=== PATIENT | male | born 1950 | race Caucasian/White ===

== ENCOUNTER → 2021-04-15 | Outpatient (CLI) | payer OTHER ==
[~2021-04-15] MED LIST: AMLODIPINE; ATORVASTATIN; CLONIDINE; DICL75ER PO; GLYBURIDE/METFORMIN; LOSARTAN; METPRE4DP PO; Percocet 5-3251 EACH PO
[2021-04-15 14:17] LABS: Alanine Aminotransfer (ALT/SGP 37 U/L (12-78); Albumin, Blood 4.3 g/dL (3.4-5.0); Albumin/Globulin Ratio 1.2 (0.8-1.8); Alk Phos 90 U/L (50-136); Anion Gap 6 mmol/L (6-16); Aspartate Aminotrans (AST/SGOT 20 U/L (12-37); Bilirubin, Total 0.9 mg/dL (0.1-1.0); Blood Urea Nitrogen 12 mg/dL (8-24); Bun/Creatinine Ratio 12.7 (12.0-20.0); CO2, Blood 28 mmol/L (21-32); Calcium, Blood 9.5 mg/dL (8.5-10.1); Chloride, Blood 101 mmol/L (98-108); Creatinine, Blood 0.95 mg/dL (0.60-1.20); Globulin, Blood 3.6 g/dL (2.2-4.0); Glomerular Filtration Rate >60 (60-); Glucose, Blood 252 mg/dL (70-99); Potassium, Blood 4.3 mmol/L (3.5-5.5); Sodium, Blood 135 mmol/L (136-145); Total Protein, Blood 7.9 g/dL (6.4-8.2)
== END | disposition home or self-care (01) ==
LOC: LAB SHORT 10:40
PROVIDERS: Family Medicine
DX: E11.9 Type 2 diabetes mellitus without complications (principal)
CPT/HCPCS: 80053; 83036

== ENCOUNTER → 2021-10-13 | Outpatient (CLI) | payer OTHER ==
[2021-10-13 13:40] LABS: Hematocrit 44.7 % (37.0-53.0); Hemoglobin 15.8 g/dL (13.5-17.5); Mean Corpuscular HGB 30.3 pg (26.0-34.0); Mean Corpuscular HGB Conc 35.3 g/dL (31.5-36.5); Mean Corpuscular Volume 86 fL (80-100); Mean Platelet Volume 9.4 fL (9.1-12.4); Platelet Count 273 K/mm3 (150-400); RDW Coefficient Variation 12.3 % (11.7-14.2); RDW Standard Deviation 38.5 fL (35.1-46.3); Red Blood Cell Count 5.21 M/mm3 (4.30-5.90); White Blood Cell Count 8.97 K/mm3 (4.00-11.30)
[2021-10-13 14:55] LABS: Alanine Aminotransfer (ALT/SGP 33 U/L (12-78); Albumin, Blood 4.6 g/dL (3.4-5.0); Albumin/Globulin Ratio 1.2 (0.8-1.8); Alk Phos 122 U/L (50-136); Anion Gap 7 mmol/L (6-16); Aspartate Aminotrans (AST/SGOT 19 U/L (12-37); Blood Urea Nitrogen 19 mg/dL (8-24); Bun/Creatinine Ratio 19.2 (12.0-20.0); CO2, Blood 27 mmol/L (21-32); Calcium, Blood 9.5 mg/dL (8.5-10.1); Chloride, Blood 99 mmol/L (98-108); Creatinine, Blood 0.99 mg/dL (0.60-1.20); Globulin, Blood 3.8 g/dL (2.2-4.0); Glomerular Filtration Rate >60 (60-); Glucose, Blood 354 mg/dL (70-99); Potassium, Blood 4.3 mmol/L (3.5-5.5); Sodium, Blood 133 mmol/L (136-145); Total Protein, Blood 8.4 g/dL (6.4-8.2)
== END | disposition home or self-care (01) ==
LOC: LAB 10:30 → LAB SHORT 10:30
PROVIDERS: Family Medicine
DX: I11.0 Hypertensive heart disease with heart failure (principal); I50.9 Heart failure, unspecified; E11.9 Type 2 diabetes mellitus without complications
CPT/HCPCS: 80053; 83036; 83880; 85027

== ENCOUNTER → 2022-01-13 | Outpatient (CLI) | payer OTHER ==
[2022-01-13 12:10] LABS: BASOPHILS ABSOLUTE AUTO 0.04 K/mm3 (0.00-0.23); BASOPHILS PERCENT AUTO 0 % (0-2); EOSINOPHILS ABSOLUTE AUTO 0.33 K/mm3 (0.00-0.68); EOSINOPHILS PERCENT AUTO 4 % (0-6); Hematocrit 42.3 % (37.0-53.0); Hemoglobin 14.4 g/dL (13.5-17.5); IMMATURE GRAN ABSOLUTE AUTO 0.02 K/mm3 (0.00-0.10); IMMATURE GRAN PERCENT AUTO 0 % (0-1); LYMPHOCYTES ABSOLUTE AUTO 1.93 K/mm3 (0.84-5.20); LYMPHOCYTES PERCENT AUTO 22 % (21-46); MONOCYTES ABSOLUTE AUTO 0.65 K/mm3 (0.16-1.47); MONOCYTES PERCENT AUTO 7 % (4-13); Mean Corpuscular HGB 30.2 pg (26.0-34.0); Mean Corpuscular Volume 89 fL (80-100); Mean Platelet Volume 9.4 fL (9.1-12.4); NEUTROPHILS ABSOLUTE AUTO 6.02 K/mm3 (1.96-9.15); NEUTROPHILS PERCENT AUTO 67 % (41-73); Platelet Count 270 K/mm3 (150-400); RDW Coefficient Variation 11.9 % (11.7-14.2); RDW Standard Deviation 38.7 fL (35.1-46.3); Red Blood Cell Count 4.77 M/mm3 (4.30-5.90); White Blood Cell Count 8.99 K/mm3 (4.00-11.30)
[2022-01-13 12:54] LABS: Alanine Aminotransfer (ALT/SGP 33 U/L (12-78); Albumin, Blood 4.4 g/dL (3.4-5.0); Albumin/Globulin Ratio 1.2 (0.8-1.8); Alk Phos 90 U/L (50-136); Anion Gap 11 mmol/L (6-16); Aspartate Aminotrans (AST/SGOT 24 U/L (12-37); Bilirubin, Total 0.7 mg/dL (0.1-1.0); Blood Urea Nitrogen 14 mg/dL (8-24); Bun/Creatinine Ratio 17.1 (12.0-20.0); CHOL/HDL RATIO 2.9; CO2, Blood 27 mmol/L (21-32); Calcium, Blood 9.9 mg/dL (8.5-10.1); Chloride, Blood 100 mmol/L (98-108); Cholesterol 123 mg/dL (50-200); Creatinine, Blood 0.82 mg/dL (0.60-1.20); Digoxin (Lanoxin) 1.17 ug/mL (0.80-2.00); Globulin, Blood 3.7 g/dL (2.2-4.0); Glomerular Filtration Rate 93 (60-); Glucose, Blood 234 mg/dL (70-99); HDL Cholesterol 42 mg/dL (>39); LDL/HDL RATIO 1.5; Low Density Lipoprotein Chol 63 mg/dL (0-110); Sodium, Blood 138 mmol/L (136-145); Total Protein, Blood 8.1 g/dL (6.4-8.2); Triglycerides 90 mg/dL (30-160); Very Low Density Lipoprot Chol 18 mg/dL (6-32)
== END | disposition home or self-care (01) ==
LOC: LAB 10:48 → LAB SHORT 10:48
PROVIDERS: Family Medicine
DX: Z12.5 Encounter for screening for malignant neoplasm of prostate (principal); I11.0 Hypertensive heart disease with heart failure; E11.9 Type 2 diabetes mellitus without complications; I50.9 Heart failure, unspecified; E78.2 Mixed hyperlipidemia
CPT/HCPCS: 80053; 80061; 80162; 83036; 83880; 85025; G0103

== ENCOUNTER 2022-04-02 08:26 | Inpatient (IN) | payer OTHER ==
[~2022-04-02] VITALS: Ht 177.8 cm; Wt 87.9 kg
[2022-04-02 09:09] LABS: Base Excess Venous -9.8 mmol/L; Bicarbonate Venous 15.9 mmol/L (24.0-30.0); PCO2 Venous 56.2 mmHg (38-42); pH Blood Venous 7.14 (7.34-7.37)
[2022-04-02 09:20] LABS: BASOPHILS ABSOLUTE AUTO 0.06 K/mm3 (0.00-0.23); BASOPHILS PERCENT AUTO 1 % (0-2); EOSINOPHILS ABSOLUTE AUTO 0.56 K/mm3 (0.00-0.68); EOSINOPHILS PERCENT AUTO 5 % (0-6); Hematocrit 45.6 % (37.0-53.0); Hemoglobin 15.4 g/dL (13.5-17.5); IMMATURE GRAN ABSOLUTE AUTO 0.05 K/mm3 (0.00-0.10); IMMATURE GRAN PERCENT AUTO 0 % (0-1); LYMPHOCYTES ABSOLUTE AUTO 3.03 K/mm3 (0.84-5.20); LYMPHOCYTES PERCENT AUTO 27 % (21-46); MONOCYTES ABSOLUTE AUTO 0.54 K/mm3 (0.16-1.47); MONOCYTES PERCENT AUTO 5 % (4-13); Mean Corpuscular HGB 30.3 pg (26.0-34.0); Mean Corpuscular HGB Conc 33.8 g/dL (31.5-36.5); Mean Corpuscular Volume 90 fL (80-100); Mean Platelet Volume 9.5 fL (9.1-12.4); NEUTROPHILS ABSOLUTE AUTO 6.97 K/mm3 (1.96-9.15); NEUTROPHILS PERCENT AUTO 62 % (41-73); Platelet Count 323 K/mm3 (150-400); RDW Coefficient Variation 13.2 % (11.7-14.2); Red Blood Cell Count 5.08 M/mm3 (4.30-5.90); White Blood Cell Count 11.21 K/mm3 (4.00-11.30)
[2022-04-02 09:40] LABS: Albumin, Blood 3.4 g/dL (3.4-5.0); Albumin/Globulin Ratio 0.8 (0.8-1.8); Bilirubin, Total 0.4 mg/dL (0.1-1.0); Bun/Creatinine Ratio 12.4 (12.0-20.0); Calcium, Blood 8.5 mg/dL (8.5-10.1); Creatinine, Blood 1.05 mg/dL (0.60-1.20); Globulin, Blood 4.1 g/dL (2.2-4.0); Potassium, Blood 4.1 mmol/L (3.5-5.5); Total Protein, Blood 7.5 g/dL (6.4-8.2)
[2022-04-02 10:13] LABS: Influenza A, PCR NEGATIVE (NEGATIVE); Influenza B, PCR NEGATIVE (NEGATIVE); Resp Syncytial Virus, PCR NEGATIVE (NEGATIVE)
[2022-04-02 10:18] LABS: SARS-Cov-2 (COVID-19) PCR, MMC POSITIVE (NEGATIVE)
--- NOTE | 2022-04-02 12:18 | NUR ---
PROVIDER: DR ROBLES AT BEDSIDE FOR ADMISSION ASSESSMENT
[2022-04-02 15:54] LABS: PCO2 Arterial 32.7 mmHg (35-45); PO2 Arterial 79.2 mmHg (80-100); pH Blood Arterial 7.36 (7.35-7.45)
--- NOTE | 2022-04-02 17:38 | NUR ---
PHARMACY: [facility] called for updated med list for med rec
--- NOTE | 2022-04-02 18:50 | NUR ---
SHIFT SUMMARY: pt admitted to ICU from ED this afternoon NEURO: propofol currently at 30. pt has received 6mg of versed for sedation as well. pt will open eyes to voice. he moves all extremities and purposfully reaches for ET tube. CARDIAC: pt on norepi for a short period of time for hypotension. Afib/aflutter on monitor. Norepi was changed to epi after several episodes of bradycardia and pauses. Lowest witnessed HR 37 bpm. Epi currently at 0.5mcg and pt tolerating well with no bradycardia. RESPIRATORY: 8.0 EET 25cm at lip. Pt initially arrived on 100% FiO2 PEEP of 8. Since titrated down to AC/VC 16/450/5/40% GI/: og tube to low-intermittant suction. Temp prob ram draining clear yellow urine. SKIN: skin intact. PSYCH/SOCIAL: pt's at bedside.
--- NOTE | 2022-04-02 20:00 | NUR ---
ASSUMED CARE OF PT AT 1915. REPORT RECEIVED. PT PRESENTS IN BED. INTUBATED. PT'S AT BEDSIDE. PT MILDLY RESISTANT TO ORAL CARE. EPINEPHERINE AT 0.5 NEEDING TO INCREASED TO 1 MCG SECONDARY TO SOFT BLOOD PRESSURES. WILL TITRATE DOWN IF ABLE. PT'S IS TO STAY IN AN RV IN THE PARKING LOT HERE AT THE HOSPITAL. WILL REIVEW CHART AND PLAN OF CARE FOR THIS PT.
--- NOTE | 2022-04-02 20:00 | NUR ---
ASSUMED CARE OF PT AT 1900. REPORT RECEIVED AT BEDSIDE. PT PRESENTS IN BED. INITIALLY ASLEEP. EASILY AWAKENS TO GREETING AND CARE. HAS BEEN INCONTINENT TO STOOL. SOME LOOSE WITH UNDIGESTED FOOD PARTICLES NOTED. PT VERY COOPERATIVE WITH CLEAN UP AND WITH ANTONIO PAD CHANGE. DISCUSSED PLAN FOR Q 2 AND PRN TURNS. TO CALL RN IF SHE HAS HAD STOOL. PT VERBALIZES UNDERSTANDING. WILL REVIEW CHART AND PLAN OF CARE FOR THIS PT.
--- NOTE | 2022-04-02 23:29 | NUR ---
SPOKE WITH DR ROBLES IN REFERENCE TO CONTINUING EPINEPHERINE VERSUS CHANGING TO LEVOPHED FOR BLOOD PRESSURE SUPPORT. WILL CONTINUE EPINEPHERINE THROUGH THE NIGHT FOR NOW. UPDATE OF ECCHOCARDIOGRAM GIVEN TO DR ROBLES.
[2022-04-02 23:49] LABS: Source, Urine Foley catheter
[2022-04-02 23:51] LABS: Bilirubin, Urine Neg (Neg); Blood, Urine 2+ (Neg); Glucose Qualitative, Urine Neg (Neg); Ketones, Urine 1+ (Neg); Leukocyte Esterase, Urine 1+ (Neg); Nitrite, Urine Neg (Neg); Protein, Urine 2+ (Neg); Specific Gravity, Urine 1.015 (1.003-1.022); Urobilinogen, Urine NORM (Normal)
--- NOTE | 2022-04-03 | NUR ---
HAVE TURNED PT Q 2 HOURS TO PROTECT SKIN INTEGRITY. PT AWAKENS EASILY AT TIMES AND BECOMES ANXIOUS. HAVE TITRATED PROPOFOL UPWARDS TO 45 MCG'S/KG/MIN. THIS HAS HELPED PT TO BE ABLE TO TOLERATE VENT BETTER. HAVE MEDICATED PT ONCE WITH 50 MCG'S FENTANYL ADJUNCT TO PROPOFOL FOR VENT TOLERANCE. YELLOW SECRETIONS SUCTIONED PER ETT. HAVE TITRATED FIO2 DOWN TO 30 PERCENT. WILL CONTINUE TO MONITOR.
[2022-04-03 00:30] LABS: Appearance, Urine Hazy (Clear); Color, Urine Yellow (P-Yellow)
[2022-04-03 00:31] LABS: Amorphous Light (0-Heavy); Bacteria Few /hpf; Mucus Light (0-Heavy); Red Blood Cells, Urine 0-2 /hpf (0-2); Squamous Epithelial Cells Not Seen /hpf (Few)
[2022-04-03 04:41] LABS: Hemoglobin 12.4 g/dL (13.5-17.5); Mean Corpuscular HGB 30.8 pg (26.0-34.0); Mean Corpuscular HGB Conc 34.4 g/dL (31.5-36.5); Mean Corpuscular Volume 90 fL (80-100); Mean Platelet Volume 9.6 fL (9.1-12.4); Platelet Count 316 K/mm3 (150-400); RDW Coefficient Variation 13.7 % (11.7-14.2); RDW Standard Deviation 44.8 fL (35.1-46.3); Red Blood Cell Count 4.02 M/mm3 (4.30-5.90); White Blood Cell Count 18.93 K/mm3 (4.00-11.30)
[2022-04-03 05:03] LABS: Albumin, Blood 2.8 g/dL (3.4-5.0); Albumin/Globulin Ratio 0.8 (0.8-1.8); Bilirubin, Total 0.5 mg/dL (0.1-1.0); Bun/Creatinine Ratio 15.1 (12.0-20.0); Calcium, Blood 8.6 mg/dL (8.5-10.1); Creatinine, Blood 1.85 mg/dL (0.60-1.20); Globulin, Blood 3.3 g/dL (2.2-4.0); Magnesium, Blood 1.8 mg/dL (1.6-2.4); Potassium, Blood 4.3 mmol/L (3.5-5.5); Total Protein, Blood 6.1 g/dL (6.4-8.2)
--- NOTE | 2022-04-03 06:47 | NUR ---
PT HAS BEEN NEEDING TO HAVE TITRATE EPINEPHERINE DRIP UP TO 5 MCG'S/MIN. CONTINUES IN ATRIAL FIB. PT ON 45 MCG'S PROPOFOL TO ENABLE VENT TOLERANCE. POOR URINE OUTPUT. <30 ML/HOUR. WITH INCREASE IN EPINEPHERINE WHICH IS IN D5W BLOOD GLUCOSE LEVELS HAVE BEEN INCREASING. WILL PASS THIS INFORMATION TO ONCOMING RN. WILL CONTINUE TO MONITOR PT, AND WILL REPORT OFF TO ONCOMIG RN.
--- NOTE | 2022-04-03 10:46 | NUR ---
ASSUMED CARE OF PT AT 0700 PT INTUBATED AND SEDATED. PROP RUNNING AT 45 MCG/KG/MIN. EPI RUNNING AT 5 MCG. TKO RUNNING WELL. PT IS SLIGHTLY HYPERTENSIVE AT THIS TIME RANGING HR IN UPPER 90'S TO 100'S. TEMP BARILLAS CATH DRAINING TO GRAVITY. SEE FULL ASSESSMENT FOR MORE INFORMATION.
--- NOTE | 2022-04-03 17:45 | NUR ---
END OF SHIFT SUMMARY PT SEDATED AND INTUBATED. PT DOES NOT OBEY COMMANDS OR NOD TO ANSWER. SPOUSE IN AND OUT OF ROOM COUPLE TIMES TODAY. BP AND HR STABLE, LEVO ON STANDBY. PROP RUNNING AT 45MCG. TKO @ 10MLS/HR. VENT SETTINGS 16/450/5/30%. LUNG SOUNDS CLEAR IN UPPER LOBES AND DIMINISHED TO NONE IN LOWER. PEDAL PULSES FOUND WITH DOPPLER ONLY. VITALS STABLE AT THIS TIME. 300 MLS URINE AND NO BM THIS SHIFT. VITAL HP RUNNING AT 35 MLS/HR WITH INTENDED GOAL OF 50 MLS/HR. WILL CONTINUE TO MONITOR UNTIL NEXT SHIFT IN.
--- NOTE | 2022-04-03 19:15 | NUR ---
ASSUMPTION OF CARE PT REMAINS INTUBATED WITH VENT SETTINGS AC/VC 16/450/5/30%. HE IS RECEIVING PROPOFOL 45MCG/KG/MIN. OGT RESIDUALS 40ML, TF INCREASED TO GOAL RATE. FACIAL GRIMACING WITH NOXIOUS STIMULI, PT WITHDRAWS EXTREMITIES WITH PAINFUL STIMULI. BARILLAS PATENT AND DRAINING YELLOW/CLOUDY URINE TO GRAVITY. CENTRAL LINE TO R SUBCLAV, PERIPHERAL IVS TO RAC AND LAC. AFIB ON MONITOR WITH RATE IN 80S, BP STABLE. SEE SHIFT ASSESSMENT.
[2022-04-04 04:03] LABS: BASOPHILS ABSOLUTE AUTO 0.01 K/mm3 (0.00-0.23); BASOPHILS PERCENT AUTO 0 % (0-2); EOSINOPHILS ABSOLUTE AUTO 0.01 K/mm3 (0.00-0.68); EOSINOPHILS PERCENT AUTO 0 % (0-6); Hemoglobin 12.9 g/dL (13.5-17.5); IMMATURE GRAN ABSOLUTE AUTO 0.09 K/mm3 (0.00-0.10); IMMATURE GRAN PERCENT AUTO 1 % (0-1); LYMPHOCYTES ABSOLUTE AUTO 1.53 K/mm3 (0.84-5.20); LYMPHOCYTES PERCENT AUTO 10 % (21-46); MONOCYTES ABSOLUTE AUTO 0.85 K/mm3 (0.16-1.47); MONOCYTES PERCENT AUTO 6 % (4-13); Mean Corpuscular HGB 30.6 pg (26.0-34.0); Mean Corpuscular HGB Conc 34.9 g/dL (31.5-36.5); Mean Corpuscular Volume 88 fL (80-100); Mean Platelet Volume 9.6 fL (9.1-12.4); NEUTROPHILS ABSOLUTE AUTO 12.16 K/mm3 (1.96-9.15); NEUTROPHILS PERCENT AUTO 83 % (41-73); Platelet Count 243 K/mm3 (150-400); RDW Coefficient Variation 13.6 % (11.7-14.2); RDW Standard Deviation 43.9 fL (35.1-46.3); Red Blood Cell Count 4.22 M/mm3 (4.30-5.90); White Blood Cell Count 14.65 K/mm3 (4.00-11.30)
[2022-04-04 04:19] LABS: Bun/Creatinine Ratio 30.3 (12.0-20.0); Creatinine, Blood 1.55 mg/dL (0.60-1.20); Phosphorus, Blood 4.7 mg/dL (2.5-4.9); Potassium, Blood 3.8 mmol/L (3.5-5.5)
--- NOTE | 2022-04-04 06:01 | NUR ---
SHIFT SUMMARY PT REMAINS INTUBATED WITH VENT SETTINGS AC/VC 16/450/5/30%. HE IS RECEIVING PROPOFOL 45MCG/KG/MIN. HE GRIMACES AND WEAKLY MOVES EXTREMITIES TO NOXIOUS STIMULI. LARGE AMOUNT OF ORAL SECRETIONS AND ETT SECRETIONS. TUBE FEEDING INFUSING AT GOAL RATE WITH MINIMAL RESIDUALS, BOWEL TONES ACTIVE. BARILLAS PATENT AND DRAINING YELLOW/CLOUDY URINE WITH SHIFT OUTPUT 700ML. HE REMAINS IN AFIB WITH RATE 70S-80S, BP STABLE THROUGHOUT SHIFT. NO ACUTE CHANGES THIS SHIFT. WILL REPORT TO ONCOMING RN.
--- NOTE | 2022-04-04 07:11 | NUR ---
ASSUMED CARE OF PT AT 0700 PT SEDATED AND INTUBATED. NO VISITORS AT THIS TIME. VITAL HP RUNNING AT 50 MLS/HR. VENT AT 16/450/5/30%. PROP AT 45 MCG,NO PRESSORS AT THIS TIME. SEE ASSESSMENT FOR FURTHER INFO.
--- NOTE | 2022-04-04 10:04 | NUR ---
PROP AND TF ON STANDBY AT THIS TIME.
--- NOTE | 2022-04-04 10:31 | NUR ---
SEDATION VACATION PT TACHICARDIC WITH SYTOLIC IN HIGH 100'S, HR ABOVE 100'S. PT VERY AGITATED PULLING ON RESTRAINTS AND NOT TOLERATING BEING OFF SEDATION. PT FOLLOWING COMMANDS WITH OPENING EYES AND SQUEEZING HANDS. PROPOFOL RESTARTED AT 45 MCG/KG/MIN.
--- NOTE | 2022-04-04 18:17 | NUR ---
END OF SHIFT SUMMARY PT INTUBATED AND SEDATED. PT DOES NOT FOLLOW COMMANDS BUT DOES PULL BACK WITH PAINFUL STIMULI. VITALS WNL. LSCBT WITH DIMINISHED BASES. PROP RUNNING AT 45 MCG. VITAL HP RUNNING AT GOAL RATE OF 50 MLS/HR. TKO AT 10 MLS/HR. VENT AT 16/450/5/30%. PT FAILED SEDATION VACATION THIS AM, PLAN IS TO TRY AGAIN IN THE MORNING TOMMOROW. PT IN ROOM AT THIS TIME. WILL CONTINUE TO MONITOR UNTIL HAND OFF TO RESEARCH AND DEVELOPMENT MANAGER.
--- NOTE | 2022-04-04 19:15 | NUR ---
ASSUMPTION OF CARE PT REMAINS INTUBATED WITH VENT SETTINGS AC/VC 16/450/5/30%. HE IS RECEIVING PROPOFOL 45MCG/KG/MIN AND NS TKO. TUBE FEEDING INFUSING AT GOAL RATE, RESIDUALS 120ML. BOWEL TONES ACTIVE. BARILLAS PATENT AND DRAINING CLEAR/YELLOW URINE TO GRAVITY. VSS AT THIS TIME. SEE SHIFT ASSESSMENT.
--- NOTE | 2022-04-04 21:23 | NUR ---
UPDATE PT CONTINUES TO HAVE BACK PAIN DESPITE REPOSITIONING AND MEDICATION. PT ASKS "TO GO TO HIS ROOM" AND HE STS "I WANT TO SLEEP IN MY BED". HE FREQUENTLY PUTS LEGS OVER THE EDGE OF THE BED AND STS "I'M GETTING UP". DIFFICULTY REORIENTING PT TO UNIT AND ROOM. HE REMAINS HYPERTENSIVE WITH SBP >180. DR BETH CONSULTED. PLAN TO RESTART PRECEDEX. BED IN LOW POSITION, BED ALARM ON, CALL LIGHT WITHIN REACH.
[2022-04-05 05:05] LABS: BASOPHILS ABSOLUTE AUTO 0.01 K/mm3 (0.00-0.23); BASOPHILS PERCENT AUTO 0 % (0-2); EOSINOPHILS PERCENT AUTO 0 % (0-6); Hematocrit 36.9 % (37.0-53.0); Hemoglobin 12.6 g/dL (13.5-17.5); IMMATURE GRAN ABSOLUTE AUTO 0.09 K/mm3 (0.00-0.10); IMMATURE GRAN PERCENT AUTO 1 % (0-1); LYMPHOCYTES ABSOLUTE AUTO 1.42 K/mm3 (0.84-5.20); LYMPHOCYTES PERCENT AUTO 10 % (21-46); MONOCYTES ABSOLUTE AUTO 0.97 K/mm3 (0.16-1.47); MONOCYTES PERCENT AUTO 7 % (4-13); Mean Corpuscular HGB 30.3 pg (26.0-34.0); Mean Corpuscular HGB Conc 34.1 g/dL (31.5-36.5); Mean Corpuscular Volume 89 fL (80-100); Mean Platelet Volume 9.8 fL (9.1-12.4); NEUTROPHILS ABSOLUTE AUTO 11.12 K/mm3 (1.96-9.15); NEUTROPHILS PERCENT AUTO 82 % (41-73); Platelet Count 225 K/mm3 (150-400); RDW Coefficient Variation 13.5 % (11.7-14.2); RDW Standard Deviation 44.4 fL (35.1-46.3); Red Blood Cell Count 4.16 M/mm3 (4.30-5.90); White Blood Cell Count 13.61 K/mm3 (4.00-11.30)
[2022-04-05 05:31] LABS: Bun/Creatinine Ratio 41.7 (12.0-20.0); Calcium, Blood 8.9 mg/dL (8.5-10.1); Creatinine, Blood 1.27 mg/dL (0.60-1.20); Potassium, Blood 3.6 mmol/L (3.5-5.5)
--- NOTE | 2022-04-05 05:43 | NUR ---
SHIFT SUMMARY PT REMAINS INTUBATED WITH VENT SETTINGS AC/VC 16/450/5/30%. HE IS RECEIVING PROPOFOL 35MCG/KG/MIN AND PRECEDEX 0.2MCG/KG/HR. PLAN TO TITRATE PROPOFOL DOWN. PT GRIMACES AND OPENS EYES WITH NOXIOUS STIMULI. COUGH/GAG INTACT. HE DOES NOT FOLLOW COMMANDS BUT EXTREMITIES WITHDRAW FROM PAINFUL STIMULI. LUNG SOUNDS CLEAR THROUGHOUT. MODERATE AMOUNT OF THIN ORAL SECRETIONS. TUBE FEEDING INFUSING VIA OGT. BOWEL TONES ACTIVE, ABDOMEN SOFT, NO GRIMACING WITH PALPATION. BARILLAS PATENT AND DRAINING CLEAR YELLOW URINE TO GRAVITY WITH SHIFT OUTPUT OF 850ML. HE REMAINS IN AFIB WITH RATE 70S-80S. BP STABLE WITH MAP >65. WILL REPORT TO ONCOMING RN.
--- NOTE | 2022-04-05 09:22 | NUR ---
TOOK OVER CARE OF PT AT 714, PT WAS VENTILATED ON AC/VC 16/450/5/30% AT THAT TIME. PRECEDEX WAS ON 0.2, PROPOFOL ON 922 RESPIRATORY THERAPIST ADJUSTING PT TO A PRESSURE SUPPORT OF 5/5 30%. PROPOFOL HAS BEEN OFF SINCE 858. PRECEDEX CURRENTLY ON 0.4.
--- NOTE | 2022-04-05 16:52 | NUR ---
SUMMARY NEURO: PT A/OX3, REORIENTED ON DATE. FOLLOWING COMMANDS WITH EQUAL STRENGTH IN ALL EXTREMETIES. PT IS LETHARGIC AND HAS GENERALIZED WEAKNESS. PT IS ALSO IMPULSIVE AT TIMES BUT HAS BEEN REDIRECTABLE SO FAR. CARDIAC: PT IS IN AFIB WITH A BBB. SYSTOLIC BP'S HAVE BEEN AROUND 130 SINCE EXTUBATION. BLE TRACE-+1 EDEMA. 40 OF LASIX GIVEN WITH 2200ML OF URINE OUTPUT FOLLOWING. LUNGS: PT EXTUBATED AROUND 1330. PT THEN PLACED ON 3L NC BUT IS CURRENTLY ON RA SATTING 97%. LUNG SOUNDS ARE CLEAR. GI: TF WAS STOPPED AT 1200. PT NPO AT THIS TIME. SOFT DISTENDED ABDOMEN WITH ACTIVE BOWELS SOUNDS. : BARILLAS IN PLACE WITH CLEAR YELLOW URINE. LASIX GIVEN TODAY.
--- NOTE | 2022-04-05 19:30 | NUR ---
ASSUMPTION OF CARE PT A&OX4. VERY PLEASANT AFFECT, PARTICIPATES IN CONVERSATION AND CARE. AFIB ON MONITOR WITH RATE IN 80S-90S, SBP 150S. PT DENIES PAIN, DISCOMFORT, CHEST PAIN AND SOB. ONLY COMPLAINT IS GENERALIZED WEAKNESS, ENCOURAGED ROM. PT FOLLOWS COMMANDS, HAS EQUAL UPPER AND LOWER EXTREMITY STRENGTH. PT ON RA WITH SPO2 >95%. RR 12-20. BOWEL TONES ACTIVE. BARILLAS PATENT AND DRAINING TO GRAVITY. BED IN LOW POSITION, CALL LIGHT WITHIN REACH. SEE SHIFT ASSESSMENT.
[2022-04-06 04:15] LABS: Hematocrit 44.4 % (37.0-53.0); Hemoglobin 15.2 g/dL (13.5-17.5); Mean Corpuscular HGB Conc 34.2 g/dL (31.5-36.5); Mean Corpuscular Volume 88 fL (80-100); Mean Platelet Volume 9.7 fL (9.1-12.4); Platelet Count 317 K/mm3 (150-400); RDW Coefficient Variation 13.4 % (11.7-14.2); RDW Standard Deviation 42.8 fL (35.1-46.3); Red Blood Cell Count 5.07 M/mm3 (4.30-5.90); White Blood Cell Count 14.57 K/mm3 (4.00-11.30)
[2022-04-06 04:24] LABS: Bun/Creatinine Ratio 37.4 (12.0-20.0); Creatinine, Blood 1.31 mg/dL (0.60-1.20); Potassium, Blood 3.4 mmol/L (3.5-5.5)
--- NOTE | 2022-04-06 06:38 | NUR ---
SHIFT SUMMARY PT IS A&OX4, VERY PLEASANT AND COOPERATIVE. HE HAS BEEN ON RA WITH SPO2 >93%. LUNG SOUNDS CLEAR THROUGHOUT. HE HAS A PRODUCTIVE COUGH WITH SMALL AMOUNT OF YELLOW PHLEGM. HE HAS BEEN DRINKING WATER THROUGHOUT THE NIGHT. HE HAS BEEN UP TO THE BEDSIDE COMMODE SEVERAL TIMES TONIGHT WITH LIQUID STOOL. BARILLAS PATENT AND DRAINING WITH SHIFT OUTPUT OF 2600ML. VSS THROUGHOUT SHIFT. PT EXPRESSES WANTING TO GO HOME TODAY. WILL REPORT TO ONCOMING RN.
--- NOTE | 2022-04-06 08:49 | NUR ---
ASSUMPTION OF CARE RECEIVED REPORT FROM ALISE CAMP AT 0700, ASSUMED CARE OF PATIENT. PATIENT A/O, SLOW TO RESPOND BUT CLEAR, ORIENTED SPEECH. SP02 100% ON ROOM AIR. AFIB WITH RATE 110-120, SBP 150'S. BARILLAS PATENT AND DRAINING CLEAR, YELLOW URINE. TWO PERSON ASSIST WITH WALKER TO COMMODE, PATIENT WITH LEFT SIDE WEAKNESS STATED HIS BASELINE FROM A STROKE HE HAD PREVIOUSLY. PATIENT UP TO CHAIR, CALL LIGHT IN REACH.
--- NOTE | 2022-04-06 12:11 | NUR ---
PHYSICIAN COMMUNICATION SPOKE WITH DR. ESQUIVEL, DISCUSSED PATIENT'S ICU STATUS AND RECEIVED ORDERS TO DOWNGRADE TO MEDICAL WITH TELE STATUS. RECEIVED ORDERS FOR SPEECH THERAPY TO EVALUATE RISK FOR ASPIRATION, SPEECH THERAPY EVALUATED PATIENT WHILE UP IN CHAIR AND ORDERS FOR A DIET WERE RECEIVED. CHANGED INSULIN ORDERS TO AC/HS. NOTIFIED DR. BANERJEE REGARDING STATUS CHANGE, RECEIVED ADDITIONAL ORDERS TO DISCONTINUE BARILLAS CATHETER AND CENTRAL LINE. WILL TREAT PRESCRIBED.
--- NOTE | 2022-04-06 18:35 | NUR ---
TRANSFER REPORT GIVEN TO MARTI CAMP, PATIENT TO TRANSFER TO MEDICAL FLOOR.
--- NOTE | 2022-04-06 22:59 | NUR ---
NOTIFIED PROVIDER CALLED DR GONZALEZ AND NOTIFIED HER OF PT'S LAST TWO HIGH BP READINGS. I SAID PER THEIR LAST PHARMACY PULL HE MAY BE TAKING CATAPRES AND LOSARTAN BUT WE CANNOT VERIFY AT THIS TIME. ORDERED 0.1 MG CATAPRES BID WITH THE FIRST DOSE NOW.
[2022-04-07 05:42] LABS: BASOPHILS ABSOLUTE AUTO 0.01 K/mm3 (0.00-0.23); BASOPHILS PERCENT AUTO 0 % (0-2); EOSINOPHILS ABSOLUTE AUTO 0.14 K/mm3 (0.00-0.68); EOSINOPHILS PERCENT AUTO 1 % (0-6); Hematocrit 40.9 % (37.0-53.0); Hemoglobin 14.1 g/dL (13.5-17.5); IMMATURE GRAN PERCENT AUTO 1 % (0-1); LYMPHOCYTES ABSOLUTE AUTO 3.13 K/mm3 (0.84-5.20); LYMPHOCYTES PERCENT AUTO 28 % (21-46); MONOCYTES ABSOLUTE AUTO 1.07 K/mm3 (0.16-1.47); MONOCYTES PERCENT AUTO 10 % (4-13); Mean Corpuscular HGB 30.1 pg (26.0-34.0); Mean Corpuscular HGB Conc 34.5 g/dL (31.5-36.5); Mean Corpuscular Volume 87 fL (80-100); NEUTROPHILS PERCENT AUTO 60 % (41-73); Platelet Count 267 K/mm3 (150-400); RDW Coefficient Variation 13.1 % (11.7-14.2); RDW Standard Deviation 41.8 fL (35.1-46.3); Red Blood Cell Count 4.69 M/mm3 (4.30-5.90); White Blood Cell Count 11.15 K/mm3 (4.00-11.30)
--- NOTE | 2022-04-07 05:46 | NUR ---
SHIFT SUMMARY PT WAS AOX4 T/O SHIFT, PLEASANT, COOPERATIVE, AND SLIGHTLY FORGETFUL. HE WAS AWARE OF HIS OWN LIMITATIONS AND USED THE CALL LIGHT FOR 2 OF US TO ASSIST TO THE BATHROOM. PT HAD MULTIPLE LOOSE, GASSY STOOLS. PT WAS ABLE TO VOID ON HIS OWN AFTER REPORT FROM DAY SHIFT THAT HE WAS HAVING DIFFICULTY DOING SO. PT CONTINUES IN ATRIAL FIB.
[2022-04-07 06:02] LABS: Magnesium, Blood 2.1 mg/dL (1.6-2.4)
[2022-04-07 06:03] LABS: Anion Gap 7 mmol/L (6-16); Blood Urea Nitrogen 45 mg/dL (8-24); Bun/Creatinine Ratio 37.5 (12.0-20.0); CO2, Blood 26 mmol/L (21-32); Calcium, Blood 8.9 mg/dL (8.5-10.1); Chloride, Blood 104 mmol/L (98-108); Glomerular Filtration Rate 63 (60-); Glucose, Blood 173 mg/dL (70-99); Phosphorus, Blood 3.8 mg/dL (2.5-4.9); Potassium, Blood 3.9 mmol/L (3.5-5.5); Sodium, Blood 137 mmol/L (136-145)
[2022-04-07] MEDS ORDERED: PIOG30 PO (11:47)
[2022-04-07] MEDS ORDERED: FURO40 PO (11:48)
[2022-04-07] MEDS ORDERED: POTA10T PO (11:48)
[2022-04-07] MEDS ORDERED: CATAPRES0.2 M1 PO (11:49)
[2022-04-07] MEDS ORDERED: GLYBURIDE-METF1 EACH PO (11:49)
[2022-04-07] MEDS ORDERED: DIGOX125 MC1 PO (11:50)
[2022-04-07] MEDS ORDERED: LOSARTAN POTAS100 M1 PO (11:50)
[2022-04-07] MEDS ORDERED: METO100ER PO (11:50)
[2022-04-07] MEDS ORDERED: CLOP75 PO (11:51)
[2022-04-07] MEDS ORDERED: ATOR20 PO (11:52)
[2022-04-07] MEDS ORDERED: SILD50TA PO (11:52)
--- NOTE | 2022-04-07 18:42 | NUR ---
SHIFT SUMMARY PATIENT DENIES PAIN, NAUSEA, AND SHORTNESS OF BREATH. PATIENT IS A 1P WITH FWW. PATIENT IS ON ROOM AIR, MAINTAINING SATS ABOVE 95%. PATIENT IS COVID+. PATIENT WORKED WITH PT,OT, AND ST. RECOMMENDED SNF. PATIENT IS EATING AND DRINKING WELL. PATIENT HR WOULD OCCASSIONALLY JUMP TO 160, THEN IMMEDIATELY COME DOWN. PATIENT HAD NO SYMPTOMS. PATIENT PREFERS TO WALK TO BATHROOM. PATIENT IS PLEASANT AND COOPERATIVE WITH CARE.
--- NOTE | 2022-04-08 05:17 | NUR ---
CONTACTED PROVIDER - HTN PT HAD SYSTOLIC IN 180'S TONIGHT AND DYASTOLIC WAS READING OVER 110. CONTACTED DR NOEL AND RELAYED INFO, HE ORDERED PRN IV HYDRALAZINE 10 MG Q6 FOR SYSTOLIC > 170.
--- NOTE | 2022-04-08 06:02 | NUR ---
SHIFT SUMMARY PT COVID+, AOX4, SAT > 95 ON RA. PT IS MOSTLY ASYMPTOMATIC OF COVID EXCEPT FOR FATIGUE. PT IS AFIB AT BASELINE, TACHY AND HYPERTENSIVE. TONIGHT HE WAS RUNNING SYSTOLIC IN THE 180'S AND THEN DYASTOLIC > 110. I CALLED THE HOSPITALIST AND PRN HYDRALAZINE Q6, FIRST DOSE WAS GIVEN THIS MORNING AT 0550. PT HR GOES INTO THE 140'S WHEN HE AMBULATING TO THE BATHROOM, AND TONIGHT HE HAD AN EPISODE OF HR 170 BECAUSE HE WAS DOING EXERCISES IN HIS BED. PT STATED NUMEROUS TIMES THAT HE HOPES HE CAN GO HOME SOON, AND THAT HE'S FEELING BETTER AND STRONGER. HE WANTS TO GO BACK TO HIS HOME AND NOT TO SNF OR REHAB. PT PLEASANT AND COOPERATIVE WITH CARE.
--- NOTE | 2022-04-08 09:39 | NUR ---
UPDATE WHILE ADMINISTERING MORNING MEDICATIONS, PATIENT WAS QUITE AGITATED WITH PHYSICAL THERAPY. PATIENT EXPRESSED TO THIS RN THAT HE WANTED TO GO HOME. I INFORMED HIM THAT THE DOCTOR WOULD NEED TO PUT DISCHARGE ORDERS IN. PATIENT EXPRESSED THAT HE WAS GOING HOME TODAY EITHER WAY. HE SAID "IM GOING TO BREAK OUT OF HERE WHETHER THEY WANT ME TO OR NOT." PATIENT EXPRESSED HE WILL NOT GO TO SNF. THIS RN HAD A LONG CONVERSATION ABOUT RISKS OF FALLING AND NOT HAVING SOMEONE WITH HIM 01/03. PATIENT ADMITMANT ABOUT GOING HOME TODAY. DR. ESQUIVEL NOTIFIED, SHE ALSO TALKED WITH PATIENT.
[2022-04-08 12:17] LABS: BASOPHILS ABSOLUTE AUTO 0.02 K/mm3 (0.00-0.23); BASOPHILS PERCENT AUTO 0 % (0-2); EOSINOPHILS ABSOLUTE AUTO 0.07 K/mm3 (0.00-0.68); EOSINOPHILS PERCENT AUTO 1 % (0-6); Hematocrit 41.5 % (37.0-53.0); Hemoglobin 14.3 g/dL (13.5-17.5); IMMATURE GRAN ABSOLUTE AUTO 0.15 K/mm3 (0.00-0.10); IMMATURE GRAN PERCENT AUTO 1 % (0-1); LYMPHOCYTES ABSOLUTE AUTO 1.57 K/mm3 (0.84-5.20); LYMPHOCYTES PERCENT AUTO 11 % (21-46); MONOCYTES ABSOLUTE AUTO 0.56 K/mm3 (0.16-1.47); MONOCYTES PERCENT AUTO 4 % (4-13); Mean Corpuscular HGB 30.3 pg (26.0-34.0); Mean Corpuscular HGB Conc 34.5 g/dL (31.5-36.5); Mean Corpuscular Volume 88 fL (80-100); Mean Platelet Volume 9.8 fL (9.1-12.4); NEUTROPHILS ABSOLUTE AUTO 12.31 K/mm3 (1.96-9.15); NEUTROPHILS PERCENT AUTO 84 % (41-73); Platelet Count 341 K/mm3 (150-400); RDW Coefficient Variation 12.9 % (11.7-14.2); RDW Standard Deviation 42.2 fL (35.1-46.3); Red Blood Cell Count 4.72 M/mm3 (4.30-5.90); White Blood Cell Count 14.68 K/mm3 (4.00-11.30)
[2022-04-08 12:34] LABS: Magnesium, Blood 2.1 mg/dL (1.6-2.4)
[2022-04-08 12:35] LABS: Calcium, Blood 9.1 mg/dL (8.5-10.1); Creatinine, Blood 1.5 mg/dL (0.60-1.20); Potassium, Blood 4.5 mmol/L (3.5-5.5)
--- NOTE | 2022-04-08 12:50 | NUR ---
TRANSFER/DIRECTOR OF DIAGNOSTIC IMAGING PATIENT CAME OUT STATING PATIENT WAS SLEEPING HARD, WOULDNT WAKE UP. WENT INTO CHECK ON PATIENT. PATIENT SITTING IN CHAIR, UNRESPONSIVE, DIAPHORETIC, DROOLING, PUPILS BLOWN ON BOTH SIDES, CBG 423. 15U OF INSULIN GIVEN. DR CALLED, NO ANSWER, DIRECTOR OF DIAGNOSTIC IMAGING CALLED. TELE REPORTS AFIB AT 85. PATIENT SATS ABOVE 90%. PATIENT VERY COLD. LABS DRAWN. PATIENT CAME BACK AND WAS TALKING. PATIENT MENTATION DIFFERENT. HALLUCINATING, A&O TO 1-2. PATIENT HAD A LARGE BM. VITALS WNL. PATIENT TRANSFERED TO ICU13. BEDSIDE REPORT GIVEN TO ICU RECIEVING NURSE. ATTEMPTED TO CALL X2, NO ANSWER.
--- NOTE | 2022-04-08 13:01 | NUR ---
Spiritual care visit conducted. In responding to a [employer], I connect with pt's spouse, Sandra. She heard to overhead page and came trembling toward pt's rm from the elevator. She is unstable on her feet as Senior Rd Engineer Marry and I get her to a chair and help explain what is happening with Mr. Peterson. RN Communications Professional Parris Nye comes and explains the Medical aspect and offers more compassion. I sit with Sandra and provide a calming presence and take short trips back to pt's rm so I can continue to keep Sandra apprised of the situation. Sandra, once she hears some positive news, she states that she needs to get some food because she feels faint. I walk with her down to the 1st floor and share that her will be in ICU-13 and it may take a bit to get him settled and that this is a good time to go t the cafeteria. Sandra responds well, voices appreciation for the care and shows signs of stabilization. I will continue to remain available to pt and family.
--- NOTE | 2022-04-08 14:31 | NUR ---
PT BACK FROM CT SCAN TO TX ROOM IN ICU FROM 13 TO ICU6
--- NOTE | 2022-04-08 16:36 | NUR ---
Case Conference Note Spoke with Primary RN Elmer and discussed case. LABOR GANG SUPERVISOR called for Pt earlier today and was transfered to ICU. Pt's mentation is starting to clear but is still experiencing some difficulty. Met with Pt's spouse Sandra as she is coming out of room. Offered supportive visit and offered therapeutic listening. Sandra reports plan to not allow Pt to come home until he goes to SNF. She reports having children and grandchildren with majority [place] in the [facility]. She does report having some family be available if needed. Continued supportive visit. Palliative Care will remain available for supportive and therapeutic visits.
--- NOTE | 2022-04-08 17:22 | NUR ---
END OF SHIFT SUMMARY PT HAS BEEN AWAKE BUT CONFUSED SINCE TX FROM MEDICAL FLOOR. VITALS WNL. LSCB IN UPPER LOBES, COARSE AND DIMINISHED IN LOWER LOBES. NO IV FLUIDS RUNNING AT THIS TIME. ABLE TO EAT DINNER WITHOUT ANY ASSISTANCE. TWO INCONTINENT INSTANCES SINCE IN ICU TODAY. PT HAS URGE FOR BM BUT HAS NOT BEEN SUCCESSFUL ON BEDPAN. TO WEAK TO GET UP TO COMMODE. PT SPOUSE STATED THAT SHE IS RECONSIDERING SNF D/T HER INABILITY TO CARE FOR HER AT HOME. PT CONTINUES TO BE VERY COFUSED WITH HALLUCINATIONS. WILL CONTINUE TO MONITOR UNTIL ASBESTOS ABATEMENT WORKER HAND OFF.
--- NOTE | 2022-04-08 18:15 | NUR ---
PT EXTREMELY CONFUSED AND TRYING TO GET OUT OF BED. ELIAS RESTRAINT PUT ON. PT CONTINUED TO ATTEMPT TO GET OUT OF BED. IM ZYPREXA GIVEN TO PT. PT CONTINUES TO PULL AT LINES AND CORDS AND ATTEMPTING TO GET OUT OF BED YELLING OUT. THIS RN AND JOSE CAMP TRIED TO REASON WITH PT, HOWEVER PT IS HALLUCINATING AND CONFUSED.
--- NOTE | 2022-04-08 19:15 | NUR ---
ASSUMPTION OF CARE PT CURRENTLY SLEEPING. HE WAKENS TO VERBAL STIMULI BUT REMAINS DROWSY. HE IS ABLE TO STATE HIS NAME, , AND THE YEAR. HE IS NOT ABLE TO STATE WHERE HE IS OR WHY HE IS HERE. DURING CONVERSATION HE MAKES NONSENSICAL REMARKS INCLUDING "HOW FAST DOES THIS THING GO?", "I FOUND A PLACE TO DO A COOKOUT", ETC. HE IS REDIRECTABLE BUT THEN WILL GO ON TO MAKE SIMILAR REMARKS. HE IS AFIB WITH BBB ON THE MONITOR WITH RATE 80S-90S. SBP 130S. HE IS ON RA WITH SPO2 >93%. HE DENIES PAIN OR DISCOMFORT. ABDOMEN SOFT, BOWEL TONES ACTIVE. ATTENDS IN PLACE. ELIAS VEST IN PLACE, BED IN LOW POSITION, BED ALARM ON, CALL LIGHT WITHIN REACH.
--- NOTE | 2022-04-08 23:41 | NUR ---
UPDATE PT REMAINS DROWSY BUT WAKES UP AND IS VERY CONFUSED. PT REPEATEDLY PULLING OFF CARDIAC LEADS AND SPO2 PROBE. HE IS HAVING AUDITORY AND VISUAL HALLUCINATIONS. PT VERY CALM BUT NOT REDIRECTABLE. ELIAS VEST REMAINS IN PLACE. BED IN LOW POSITION AND CALL LIGHT WITHIN REACH.
[2022-04-09 03:22] LABS: BASOPHILS ABSOLUTE AUTO 0.01 K/mm3 (0.00-0.23); BASOPHILS PERCENT AUTO 0 % (0-2); EOSINOPHILS ABSOLUTE AUTO 0.17 K/mm3 (0.00-0.68); EOSINOPHILS PERCENT AUTO 1 % (0-6); Hematocrit 39.8 % (37.0-53.0); Hemoglobin 13.7 g/dL (13.5-17.5); IMMATURE GRAN ABSOLUTE AUTO 0.08 K/mm3 (0.00-0.10); IMMATURE GRAN PERCENT AUTO 1 % (0-1); LYMPHOCYTES ABSOLUTE AUTO 2.49 K/mm3 (0.84-5.20); LYMPHOCYTES PERCENT AUTO 18 % (21-46); MONOCYTES ABSOLUTE AUTO 0.99 K/mm3 (0.16-1.47); MONOCYTES PERCENT AUTO 7 % (4-13); Mean Corpuscular HGB Conc 34.4 g/dL (31.5-36.5); Mean Corpuscular Volume 87 fL (80-100); Mean Platelet Volume 9.5 fL (9.1-12.4); NEUTROPHILS PERCENT AUTO 74 % (41-73); Platelet Count 271 K/mm3 (150-400); RDW Coefficient Variation 12.8 % (11.7-14.2); RDW Standard Deviation 41.1 fL (35.1-46.3); Red Blood Cell Count 4.56 M/mm3 (4.30-5.90); White Blood Cell Count 14.14 K/mm3 (4.00-11.30)
[2022-04-09 03:46] LABS: Anion Gap 7 mmol/L (6-16); Blood Urea Nitrogen 42 mg/dL (8-24); Bun/Creatinine Ratio 30.7 (12.0-20.0); CO2, Blood 27 mmol/L (21-32); Calcium, Blood 8.9 mg/dL (8.5-10.1); Chloride, Blood 106 mmol/L (98-108); Creatinine, Blood 1.37 mg/dL (0.60-1.20); Glomerular Filtration Rate 54 (60-); Glucose, Blood 152 mg/dL (70-99); Phosphorus, Blood 3.6 mg/dL (2.5-4.9); Potassium, Blood 4.1 mmol/L (3.5-5.5); Sodium, Blood 140 mmol/L (136-145)
--- NOTE | 2022-04-09 05:41 | NUR ---
SHIFT SUMMARY PT HAS MOSTLY SLEPT FOR SECOND HALF OF SHIFT. HE WAKENS TO VERBAL STIMULI AND REMAINS ALERT TO SELF AND FAMILY. HE CONTINUES TO HAVE AUDITORY AND VISUAL HALLUCINATIONS. VERY PLEASANT AFFECT BUT MAKES NONSENSICAL CONVERSATION DESPITE REORIENTING. BOWEL TONES ACTIVE, ABDOMEN SOFT. 2 INCONTINENT VOIDS THIS SHIFT. ELIAS VEST REMAINS IN PLACE. VSS THROUGHOUT SHIFT. WILL REPORT TO ONCOMING RN.
--- NOTE | 2022-04-09 10:51 | NUR ---
DR ESQUIVEL IN ROOM WITH PT.
--- NOTE | 2022-04-09 11:52 | NUR ---
PHYSICAL THERAPY IN WITH PT. PT IS UP TO COMMODE, THEN TO CHAIR TO EAT LUNCH. PT TOLERATING WELL.
--- NOTE | 2022-04-09 12:22 | NUR ---
SPOUSE OF PT AND FAMILY MEMBER HERE TO VISIT. PT UP IN CHAIR EATING LUNCH. SPOUSE COMMUNICATING WITH KARLI FROM PASTORAL CARE.
--- NOTE | 2022-04-09 13:16 | NUR ---
[facility] care visit conducted. Pt is sitting on a chair and alert. Pt's spouse, Sandra, and his brother are present. Sandra steps out of the to visit with me. She is tearful as she explains how verbally abusive pt has been since his his medical issues began. She knows that he is generally not nasty or mean but struggles to seperate his words to just his medical condition. She explains her concerns about how placement will go once pt recovers and if she manage him if he continues with his currnet disposition. I encourage self-care, listen empathically and provide gentle psychologist counseling and a calming presence. Sandra shows signs of reduced stress. I will cotinue to remain available to pt and family.
--- NOTE | 2022-04-09 16:56 | NUR ---
END OF SHIFT SUMMARY PT CONFUSED MOST OF THE DAY. PT CAN ANSWER QUESTIONS REGARDING NAME AND . OTHER QUESTIONS VARY IN ANSWERS BY THE MINUTE. VITALS WNL FOR PATIENTS BASELINE. CHRONIC AFIB RVR. PT RESTRAINED MOST OF THE DAY WITH VEST EITHER IN CHAIR BY BEDSIDE OR IN BED. SPO2 >93%. PT IS COOPERATIVE WITH CARE, HOWEVER AT TIMES DOES NOT OBEY COMMANDS. CBG 382 THIS AFTERNOON. WILL CONTINUE TO MONITOR.
--- NOTE | 2022-04-09 17:36 | NUR ---
PT SCOOTING AROUND ROOM IN CHAIR WITH ELIAS RESTRAINT ON. IM ZYPREXA GIVEN TO CALM PT. DINNER SERVED AND PT IS CONTENT AT THIS TIME.
--- NOTE | 2022-04-09 18:21 | NUR ---
PT OUT TO MED FLOOR RM [id number]. CALLED NUMBER ON FILE FOR SPOUSE WITH NO ANSWER.
--- NOTE | 2022-04-10 04:25 | NUR ---
SHIFT SUMMARY 72 YR M ADMITTED FOR [facility]. COVID POSITIVE. FULL CODE. PT WAS IN ELIAS VEST AT BEGINNING OF SHIFT BUT WAS DETERMINED TO GET OUT OF IT AND ENDED UP WITH IT WRAPPED AROUND HIS NECK. HE ALSO KEPT WRIGLING HIMSELF TO HANG OFF THE SIDE OF THE BED. SOFT WRIST AND ANKLE RESTRAINTS WERE APPLIED TO KEEP THE PT FROM HARMING HIMSELF. HE CONTINUES TO CALL OUT BEGGING FOR A KNIFE OR SCISSORS AND CURSES AT ANYONE WHO WONT BRING THESE THINGS TO HIM. HE HAS THREATENED TO HARM ME IF I DONT "CUT HIM LOOSE". HE IS VERY CONFUSED AND IS TALKING TO PEOPLE WHO ARE NOT THERE. BP IS ELEVATED AT 154/115. PRN HYDRALIZINE HAS A PERAMITER OF SBP >170. RESTRAINT ASSESSMENTS ARE UP TO DATE.
[2022-04-10 09:49] LABS: BASOPHILS ABSOLUTE AUTO 0.02 K/mm3 (0.00-0.23); BASOPHILS PERCENT AUTO 0 % (0-2); EOSINOPHILS PERCENT AUTO 1 % (0-6); Hematocrit 39.7 % (37.0-53.0); Hemoglobin 13.8 g/dL (13.5-17.5); IMMATURE GRAN ABSOLUTE AUTO 0.16 K/mm3 (0.00-0.10); IMMATURE GRAN PERCENT AUTO 1 % (0-1); LYMPHOCYTES ABSOLUTE AUTO 2.42 K/mm3 (0.84-5.20); LYMPHOCYTES PERCENT AUTO 14 % (21-46); MONOCYTES ABSOLUTE AUTO 1.52 K/mm3 (0.16-1.47); MONOCYTES PERCENT AUTO 9 % (4-13); Mean Corpuscular HGB 30.1 pg (26.0-34.0); Mean Corpuscular HGB Conc 34.8 g/dL (31.5-36.5); Mean Corpuscular Volume 87 fL (80-100); Mean Platelet Volume 9.8 fL (9.1-12.4); NEUTROPHILS ABSOLUTE AUTO 13.44 K/mm3 (1.96-9.15); NEUTROPHILS PERCENT AUTO 76 % (41-73); Platelet Count 363 K/mm3 (150-400); RDW Coefficient Variation 12.9 % (11.7-14.2); RDW Standard Deviation 40.4 fL (35.1-46.3); Red Blood Cell Count 4.58 M/mm3 (4.30-5.90); White Blood Cell Count 17.66 K/mm3 (4.00-11.30)
[2022-04-10 10:02] LABS: Magnesium, Blood 1.9 mg/dL (1.6-2.4)
[2022-04-10 10:03] LABS: Albumin, Blood 3.2 g/dL (3.4-5.0); Anion Gap 10 mmol/L (6-16); Blood Urea Nitrogen 46 mg/dL (8-24); Bun/Creatinine Ratio 34.3 (12.0-20.0); CO2, Blood 23 mmol/L (21-32); Calcium, Blood 9.1 mg/dL (8.5-10.1); Chloride, Blood 109 mmol/L (98-108); Creatinine, Blood 1.34 mg/dL (0.60-1.20); Glomerular Filtration Rate 56 (60-); Glucose, Blood 159 mg/dL (70-99); Potassium, Blood 3.8 mmol/L (3.5-5.5); Sodium, Blood 142 mmol/L (136-145)
[2022-04-10 16:30] LABS: Digoxin (Lanoxin) 0.49 ug/mL (0.80-2.00)
--- NOTE | 2022-04-10 18:18 | NUR ---
SHIFT SUMMARY: PT CONTINUES TO BE AGITATED, A/V HALLUCINATIONS, PULLING AGAINST RESTRAINTS, SWINGING AND THREATENING STAFF AT TIMES. CONSTANTLY TRYING TO GET OUT OF RESTRAINTS. REMOTE MONITORING IN PLACE PT IS ON ENHANCED PRECAUTIONS FOR COVID. ALERT TO SELF ONLY. INCONTINENT OF B&B, ATTENDS IN PLACE. ON ROOM AIR, NO SOB. VISITED EARLIER TODAY. MINIMAL PO INTAKE.
--- NOTE | 2022-04-11 04:33 | NUR ---
SHIFT SUMMARY; PATIENT PLACED IN TUFF CUFFS AT DAY SHIFT NOC SHIFT REPORT. HE IS ABLE TO REMOVE HIS SOFT CUFFS AND IS TRYING TO PULL HIMSELF OVER THE RAILING ON THE BED. PATIENT ALSO KICKING AND STRIKING OUT AT STAFF. HALLUCININATING AND CALLING THIS RN "DEEPTHI" HE THINKS HE IS AT HOME AND THAT HE IS STUCK IN THE MUD OUTSIDE OF HIS HOUSE. ATTEMPTS TO REORIENT HIM ARE UNSUCCESSFUL THROUGHOUT THE NIGHT. EARLY IN THE AM PATIENT IS MEDICATED WITH ZYPREXA IM 10MG ONE TIME DOSE HE HAS BEEN AWAKE ALL NOC SHIFT AND IS ARCHING HIS BACK AND TRYING TO FIGHT WITH UNKNOWN PERSON NEXT TO HIS BED. PATIENT CALMS WITHIN MINUTES AND IS NOTED TO BE WATCHING TV CURRENTLY. HE IS OFFERED WATER AND FOOD. HIS CMS CHECKED REPEATEDLY AND NO PROBLEM AREAS ARE NOTED. HIS ATTENDS ARE CHANGED AND NOTED TO BE WET AND HE IS REPOSITIONED Q 2 HOURS. THIS RN SITS OUTSSIDE OF THIS PATIENT ROOM TO BE AVAILABLE FOR HIM.
[2022-04-11 05:18] LABS: BASOPHILS ABSOLUTE AUTO 0.04 K/mm3 (0.00-0.23); BASOPHILS PERCENT AUTO 0 % (0-2); EOSINOPHILS ABSOLUTE AUTO 0.19 K/mm3 (0.00-0.68); EOSINOPHILS PERCENT AUTO 1 % (0-6); Hematocrit 39.2 % (37.0-53.0); Hemoglobin 13.7 g/dL (13.5-17.5); IMMATURE GRAN ABSOLUTE AUTO 0.11 K/mm3 (0.00-0.10); IMMATURE GRAN PERCENT AUTO 1 % (0-1); LYMPHOCYTES ABSOLUTE AUTO 2.07 K/mm3 (0.84-5.20); LYMPHOCYTES PERCENT AUTO 16 % (21-46); MONOCYTES ABSOLUTE AUTO 1.15 K/mm3 (0.16-1.47); MONOCYTES PERCENT AUTO 9 % (4-13); Mean Corpuscular HGB 30.4 pg (26.0-34.0); Mean Corpuscular HGB Conc 34.9 g/dL (31.5-36.5); Mean Corpuscular Volume 87 fL (80-100); Mean Platelet Volume 9.6 fL (9.1-12.4); NEUTROPHILS ABSOLUTE AUTO 9.83 K/mm3 (1.96-9.15); NEUTROPHILS PERCENT AUTO 73 % (41-73); Platelet Count 320 K/mm3 (150-400); RDW Coefficient Variation 12.9 % (11.7-14.2); RDW Standard Deviation 40.7 fL (35.1-46.3); White Blood Cell Count 13.39 K/mm3 (4.00-11.30)
[2022-04-11 05:46] LABS: Albumin, Blood 3.3 g/dL (3.4-5.0); Anion Gap 12 mmol/L (6-16); Blood Urea Nitrogen 48 mg/dL (8-24); Bun/Creatinine Ratio 28.9 (12.0-20.0); CO2, Blood 22 mmol/L (21-32); Calcium, Blood 9.3 mg/dL (8.5-10.1); Chloride, Blood 107 mmol/L (98-108); Creatinine, Blood 1.66 mg/dL (0.60-1.20); Glomerular Filtration Rate 43 (60-); Glucose, Blood 203 mg/dL (70-99); Phosphorus, Blood 4.5 mg/dL (2.5-4.9); Sodium, Blood 141 mmol/L (136-145)
--- NOTE | 2022-04-11 14:14 | NUR ---
pt laying in bed with 4 point restraints, and roselyn vest, he is in good spirits this am, not fighting the restraints, is very confused, doesn't remember what happened to him or where he is. a/ox2, cooperative with care, follows commands, makes a joke about everything, lungs are clear but dim t/o, resp even and unlabored, no cough noted, hrr, no edema noted, ppp+2, cap refill <3sec, vs stable, afebrile, no iv site, spoke to Dr. Glez he will possibly change iv to po meds, will wait for change, btx4, abd flat soft nontender, voids without diff, skin c/w/d, [place], call light in reach.
--- NOTE | 2022-04-11 15:04 | NUR ---
pt restraints were removed at 1230 for lunch, was in room, he did fine, and said he felt better being able to move his arms, still in good spirits. no complaints, dangling on the side of the bed, promises to call before trying to get up, PT worked with him, also got up to bsc for bm, did well. call light in reach.
--- NOTE | 2022-04-11 18:11 | NUR ---
restraints were removed at 1230, pt has been in good spirits all day, no acute changes, has been ambulating to the bathroom, cooperative with care, asking about going home, call light in reach.
--- NOTE | 2022-04-12 06:07 | NUR ---
Rn summary: Patient is alert, oriented x3. He is happy and very pleasant. Patient has rested well all night. He denies any respiratory distress, he is on RA with O2 sats 96%, lungs are clear. Pt remains on camera for safety.
[2022-04-12 06:45] LABS: Bun/Creatinine Ratio 34.7 (12.0-20.0); Creatinine, Blood 1.47 mg/dL (0.60-1.20)
--- NOTE | 2022-04-12 08:00 | NUR ---
PT VS SHOWS RATE 38. I MANUALLY CHECKED AND IT IS 62.
--- NOTE | 2022-04-12 17:31 | NUR ---
PT VERY PLEASANT AND COOP TODAY. SOME PARANOID ABOUT TAKING MONEY AND LEAVING. CALLED HER TO DISCUSS. SHE STATES HE WAS RECENTLY DRIVING AND ABOUT DOING THINGS. CONFUSION IS VERY RECENT, SINCE GOT SICK. SHE STATES 50+ YEARS AND IS NOT PLANNING SEPARATION. SPOKE TO PT AND REASSURED HIM OF FINDINGS. SHE TO ASK BROTHER IN LAW TO BRING HER HERE TODAY IF CAN. HE SEEMS TO UNDERSTAND. HE MORE CALM WITH TALKING TO HIM. HE IS AGREEABLE TO STAY A COUPLE DAYS MORE TO HEAL AND HOPE TO GO HOME [place]. HE GOT SHOWER TODAY. AMBULATING WITH FWW SBA TO BATHROOM. BED IN LOW POSITION, CALL LITE IN REACH, CALLS APPROP
--- NOTE | 2022-04-12 18:47 | NUR ---
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 WIFES B/DAY. MORE DETAILS ON HIS JOB AND BUSINESS. DID AMBULATE TO SHOWER TODAY. REMAINS PLEASANT AND COOP. STATES FEELS PRETTY READY TO GO HOME.
--- NOTE | 2022-04-13 04:30 | NUR ---
SHIFT SUMMARY 72 YR M ADMITTED FOR RESPIRATORY FAILURE/COVID. FULL CODE. NO ACUTE CHANGES THIS SHIFT. PT APPEARS LESS CONFUSED TODAY THAN HE HAS BEEN IN THE LAST WEEK. HE IS A&O X 4 FAR ANSWERING QUESTIONS, BUT IS STILL A BIT CONFUSED. HE IS A STAND BY ASSIST TO THE BATHROOM BUT IS PRETTY STEADY ON HIS FEET. HE STATES THAT HE IS ANXIOUS TO GO HOME AND ASKED ME HOW MANY DAYS HE HAS BEEN HERE. HE STATES THAT HE IS GOING HOME TOMORROW (WHICH IS ACTUALLY TODAY).
[2022-04-13 05:23] LABS: Hemoglobin 14.1 g/dL (13.5-17.5); Mean Corpuscular HGB 29.9 pg (26.0-34.0); Mean Corpuscular HGB Conc 34.4 g/dL (31.5-36.5); Mean Corpuscular Volume 87 fL (80-100); Mean Platelet Volume 9.8 fL (9.1-12.4); Platelet Count 340 K/mm3 (150-400); RDW Coefficient Variation 12.7 % (11.7-14.2); RDW Standard Deviation 40.3 fL (35.1-46.3); Red Blood Cell Count 4.71 M/mm3 (4.30-5.90)
[2022-04-13 06:01] LABS: Digoxin (Lanoxin) 0.79 ug/mL (0.80-2.00)
[2022-04-13 06:02] LABS: Anion Gap 5 mmol/L (6-16); Blood Urea Nitrogen 38 mg/dL (8-24); Bun/Creatinine Ratio 28.1 (12.0-20.0); CO2, Blood 27 mmol/L (21-32); Calcium, Blood 9.2 mg/dL (8.5-10.1); Chloride, Blood 105 mmol/L (98-108); Creatinine, Blood 1.35 mg/dL (0.60-1.20); Glomerular Filtration Rate 55 (60-); Glucose, Blood 206 mg/dL (70-99); Sodium, Blood 137 mmol/L (136-145)
--- NOTE | 2022-04-13 17:54 | NUR ---
PATIENT IS DOING GOOD! PROBABLE DISCHARGE TOMORROW, HOME WITH . MACHINE SET UP OPERATOR [employer] RECOMMENDED REHAB, BUT PATIENT DOES NOT WANT TO ATTEND. HE HAS BEEN COOPERATIVE WITH CARES THIS SHIFT. DENIES SOB, CHEST PAIN. LS- SOME UPPER SCA INSPIRATORY CRACKLES ON (RIGHT) SIDE. RARE COUGH. DID COMPLAIN OF A SORE THOAT THIS AM, THAT WARM COFFEE HEALED. PT AND OT HAVE WORKED WITH PATIENT. WE ARE WAITING FOR THERAPY EVALUATION.
--- NOTE | 2022-04-14 03:54 | NUR ---
Rn summary: Patient is alert x3. He is still a little "off", but does well. He is hoping to be discharged today. Pt does c/o a sore throat and has an increased cough from Wednesday night. Lung sounds are also changed with courseness in nativid[place] bases. He continues to be on RA, sating 100%. He does not c/o SOB. Pt remains in enhanced isolation for Covid 19. Pt medicated with tylenol 650mg for sore throat. Pt has been resting well, woke up at 0330 wanting to be discharged home. Redirected to wait until morning for the doctor. Will continue to monitor.
--- NOTE | 2022-04-14 14:15 | NUR ---
PATIENT DISCHARGED TO HOME WITH HOME HEALTH AT 1400 TODAY. DISCHARGE PAPERWORK, PATIENT EDUCATION AND MEDICATION WERE REVIEWED WITH PATIENT AND FAMILY. HE WAS WHEELED OUT OF [facility] BY [facility] STAFF AND WAS TRANSPORTED VIA AUTOMOBILE WITH FAMILY.
== END 2022-04-14 14:02 | disposition home health service (06) | DRG 871 ==
LOC: ER 08:26 → ICUW 11:12 → MEDS 04-06 19:39 → ICUW 04-08 12:22 → ICUE 04-08 14:26 → MEDS 04-09 18:35
PROVIDERS: Emergency Medicine; Internal Medicine; Internal Medicine Critical Care Medicine; Nurse Practitioner Acute Care; ADMIT Internal Medicine
PROC: 0BH17EZ Insertion of Endotracheal Airway into Trachea, Via Natural or Artificial Opening (ICD-10-PCS; principal; 2022-04-02)
PROC: 02HV33Z Insertion of Infusion Device into Superior Vena Cava, Percutaneous Approach (ICD-10-PCS; 2022-04-02)
PROC: 3E033XZ Introduction of Vasopressor into Peripheral Vein, Percutaneous Approach (ICD-10-PCS; 2022-04-02)
PROC: 3E03329 Introduction of Other Anti-infective into Peripheral Vein, Percutaneous Approach (ICD-10-PCS; 2022-04-02)
PROC: 5A1945Z Respiratory Ventilation, 24-96 Consecutive Hours (ICD-10-PCS; 2022-04-02)
PROC: XW033E5 Introduction of Remdesivir Anti-infective into Peripheral Vein, Percutaneous Approach, New Technology Group 5 (ICD-10-PCS; 2022-04-03)
PROC: 3E0333Z Introduction of Anti-inflammatory into Peripheral Vein, Percutaneous Approach (ICD-10-PCS; 2022-04-03)
PROC: XW0DXM6 Introduction of Baricitinib into Mouth and Pharynx, External Approach, New Technology Group 6 (ICD-10-PCS; 2022-04-03)
DX: A41.9 Sepsis, unspecified organism (principal); G93.41 Metabolic encephalopathy; U07.1 COVID-19; J12.82 Pneumonia due to coronavirus disease 2019; J96.01 Acute respiratory failure with hypoxia; J69.0 Pneumonitis due to inhalation of food and vomit; N17.0 Acute kidney failure with tubular necrosis; R65.21 Severe sepsis with septic shock; E87.2 Acidosis; I50.32 Chronic diastolic (congestive) heart failure; J91.8 Pleural effusion in other conditions classified elsewhere; I48.19 Other persistent atrial fibrillation; E11.65 Type 2 diabetes mellitus with hyperglycemia; Z78.1 Physical restraint status; I11.0 Hypertensive heart disease with heart failure; R79.89 Other specified abnormal findings of blood chemistry; I44.7 Left bundle-branch block, unspecified; Z79.899 Other long term (current) drug therapy; Z79.84 Long term (current) use of oral hypoglycemic drugs; Z87.891 Personal history of nicotine dependence
CPT/HCPCS: 0241U; 31500; 36415; 36556; 36600; 51702; 70450; 71045; 71260; 80048; 80053; 80069; 80162; 81001; 82803; 82947; 83735; 83880; 84100; 84145; 84484; 85025; 85027; 87040; 87070; 87086; 87205; 92526; 92610; 92950; 93005; 93010; 93306; 94002; 94003; 94660; 94760; 94762; 96365-59; 96375-59; 96376-59; 97110; 97116; 97162; 97166; 97530; 99291-25; A9270; C1751; C9113; C9399; J0171; J0248; J0360; J0696; J1100; J1650; J1815; J1940; J2060; J2250; J2704; J3010; J7030; J7050; J7060; Q9967

== ENCOUNTER → 2022-05-12 | Outpatient (CLI) | payer OTHER ==
[~2022-05-12] MED LIST changes: +ATOR20 PO; +CATAPRES0.2 M1 PO; +CLOP75 PO; +DIGOX125 MC1 PO; +FURO40 PO; +GLYBURIDE-METF1 EACH PO; +LOSARTAN POTAS100 M1 PO; +METO100ER PO; +PIOG30 PO; +POTA10T PO; +SILD50TA PO
[2022-05-12 15:24] LABS: BASOPHILS ABSOLUTE AUTO 0.04 K/mm3 (0.00-0.23); BASOPHILS PERCENT AUTO 0 % (0-2); EOSINOPHILS ABSOLUTE AUTO 0.18 K/mm3 (0.00-0.68); EOSINOPHILS PERCENT AUTO 2 % (0-6); Hematocrit 36.9 % (37.0-53.0); Hemoglobin 12.9 g/dL (13.5-17.5); IMMATURE GRAN ABSOLUTE AUTO 0.04 K/mm3 (0.00-0.10); IMMATURE GRAN PERCENT AUTO 0 % (0-1); LYMPHOCYTES ABSOLUTE AUTO 1.35 K/mm3 (0.84-5.20); LYMPHOCYTES PERCENT AUTO 14 % (21-46); MONOCYTES ABSOLUTE AUTO 0.65 K/mm3 (0.16-1.47); MONOCYTES PERCENT AUTO 7 % (4-13); Mean Corpuscular HGB 30.4 pg (26.0-34.0); Mean Corpuscular Volume 87 fL (80-100); Mean Platelet Volume 9.7 fL (9.1-12.4); NEUTROPHILS ABSOLUTE AUTO 7.41 K/mm3 (1.96-9.15); NEUTROPHILS PERCENT AUTO 77 % (41-73); Platelet Count 296 K/mm3 (150-400); RDW Standard Deviation 43.8 fL (35.1-46.3); Red Blood Cell Count 4.25 M/mm3 (4.30-5.90); White Blood Cell Count 9.67 K/mm3 (4.00-11.30)
== END | disposition home or self-care (01) ==
LOC: LAB SHORT 10:10 → LAB 10:10
PROVIDERS: Family Medicine
DX: I50.9 Heart failure, unspecified (principal)
CPT/HCPCS: 83880; 85025

== ENCOUNTER → 2022-06-29 | Outpatient (CLI) | payer OTHER ==
[2022-06-29 14:17] LABS: CHOL/HDL RATIO 3.2; Cholesterol 174 mg/dL (50-200); HDL Cholesterol 55 mg/dL (>39); LDL/HDL RATIO 1.8; Low Density Lipoprotein Chol 100 mg/dL (0-110); Triglycerides 94 mg/dL (30-160); Very Low Density Lipoprot Chol 18 mg/dL (6-32)
== END | disposition home or self-care (01) ==
LOC: LAB 12:43 → LAB SHORT 12:43
PROVIDERS: Family Medicine
DX: E78.5 Hyperlipidemia, unspecified (principal); E11.9 Type 2 diabetes mellitus without complications
CPT/HCPCS: 80061; 83036

== ENCOUNTER → 2022-12-30 | Outpatient (CLI) | payer OTHER | END | disposition home or self-care (01) | LOC: LAB 12:00 → LAB SHORT 12:00 | DX: N39.0 Urinary tract infection, site not specified (principal) | CPT/HCPCS: 87086 ==

== ENCOUNTER → 2023-03-09 | Outpatient (CLI) | payer OTHER ==
[2023-03-09 19:57] LABS: BASOPHILS ABSOLUTE AUTO 0.04 K/mm3 (0.00-0.23); BASOPHILS PERCENT AUTO 1 % (0-2); EOSINOPHILS ABSOLUTE AUTO 0.27 K/mm3 (0.00-0.68); EOSINOPHILS PERCENT AUTO 4 % (0-6); Hematocrit 41.8 % (37.0-53.0); IMMATURE GRAN ABSOLUTE AUTO 0.12 K/mm3 (0.00-0.10); IMMATURE GRAN PERCENT AUTO 2 % (0-1); LYMPHOCYTES ABSOLUTE AUTO 1.33 K/mm3 (0.84-5.20); LYMPHOCYTES PERCENT AUTO 19 % (21-46); MONOCYTES PERCENT AUTO 8 % (4-13); Mean Corpuscular HGB 30.8 pg (26.0-34.0); Mean Corpuscular HGB Conc 35.9 g/dL (31.5-36.5); Mean Corpuscular Volume 86 fL (80-100); NEUTROPHILS ABSOLUTE AUTO 4.75 K/mm3 (1.96-9.15); NEUTROPHILS PERCENT AUTO 67 % (41-73); Platelet Count 209 K/mm3 (150-400); RDW Coefficient Variation 11.9 % (11.7-14.2); RDW Standard Deviation 37.7 fL (35.1-46.3); Red Blood Cell Count 4.87 M/mm3 (4.30-5.90); White Blood Cell Count 7.11 K/mm3 (4.00-11.30)
[2023-03-09 20:17] LABS: LDL/HDL RATIO 2.4; Very Low Density Lipoprot Chol 20 mg/dL (6-32)
[2023-03-09 20:23] LABS: Alanine Aminotransfer (ALT/SGP 29 U/L (12-78); Alk Phos 145 U/L (50-136); Anion Gap 9 mmol/L (6-16); Aspartate Aminotrans (AST/SGOT 27 U/L (12-37); Bilirubin, Total 0.8 mg/dL (0.1-1.0); Blood Urea Nitrogen 19 mg/dL (8-24); Bun/Creatinine Ratio 26.7 (12.0-20.0); CHOL/HDL RATIO 3.8; CO2, Blood 20 mmol/L (21-32); Calcium, Blood 9.2 mg/dL (8.5-10.1); Chloride, Blood 104 mmol/L (98-108); Cholesterol 187 mg/dL (50-200); Creatinine, Blood 0.71 mg/dL (0.60-1.20); Digoxin (Lanoxin) 0.79 ug/mL (0.80-2.00); Glomerular Filtration Rate 96 (60-); Glucose, Blood 394 mg/dL (70-99); HDL Cholesterol 49 mg/dL (>39); Low Density Lipoprotein Chol 118 mg/dL (0-110); Potassium, Blood 4.7 mmol/L (3.5-5.5); Sodium, Blood 133 mmol/L (136-145); Triglycerides 102 mg/dL (30-160)
== END ==
LOC: LAB 18:50 → LAB SHORT 18:50
PROVIDERS: Family Medicine
DX: I10 Essential (primary) hypertension (principal); E11.9 Type 2 diabetes mellitus without complications; I48.91 Unspecified atrial fibrillation; E78.5 Hyperlipidemia, unspecified
CPT/HCPCS: 80053; 80061; 80162; 83036; 85025